=== PATIENT | male | born 1940 | race Native Hawaiian/Other Pacific Islander ===

== ENCOUNTER 2022-01-04 18:23 | Emergency (ER) | payer OTHER ==
[~2022-01-04] VITALS: Ht 157.5 cm; Wt 84.4 kg
[2022-01-04 18:23] VITALS: BP 156/78; TEMP 98.2
[2022-01-04 18:54] LABS: PLATELET COUNT 200 K/uL (142-355)
[2022-01-04 19:18] LABS: POTASSIUM 4.4 mmol/L (3.6-5.2)
[2022-01-04] MEDS ORDERED: DONEPEZIL HYDRO10 MG PO (22:32)
[2022-01-04] MEDS ORDERED: ASPIRIN ADULT L81 M1 PO (22:33)
[2022-01-04] MEDS ORDERED: CLARITIN10 M1 PO (22:35)
[2022-01-04] MEDS ORDERED: DIVA500T2 PO (22:37)
[2022-01-04] MEDS ORDERED: FLUTICASON50 MCG/AC1 NAS (22:39)
[2022-01-04] MEDS ORDERED: LIPITOR20 MG PO (22:39)
[2022-01-04] MEDS ORDERED: LISI5TAB10 PO (22:40)
[2022-01-04] MEDS ORDERED: MECLIZINE HCL25 MG PO (22:41)
[2022-01-04] MEDS ORDERED: MELATONIN MAXIMU5 MG PO (22:41)
[2022-01-04] MEDS ORDERED: MELOXICAM7.5 MG PO (22:42)
[2022-01-04] MEDS ORDERED: ZOLOFT25 MG PO (22:44)
[2022-01-04] MEDS ORDERED: OLANZAPINE15 M1 PO (22:45)
[2022-01-04] MEDS ORDERED: CARV6.25 PO (22:46)
[2022-01-04] MEDS ORDERED: TAMSULOSIN HYD0.4 MG PO (22:47)
[2022-01-04] MEDS ORDERED: PROAIR HFA108 MCG/AC INH (22:49)
== END 2022-01-04 20:26 | disposition still patient (30) ==
LOC: ED 18:23
PROVIDERS: Emergency Medicine Emergency Medical Services
DX: F91.8 Other conduct disorders (principal); J18.9 Pneumonia, unspecified organism; F17.210 Nicotine dependence, cigarettes, uncomplicated; Z11.52 Encounter for screening for COVID-19
CPT/HCPCS: 36415; 80053; 85027; 87635; 93005; 96372; 99283; J0696; U0003